=== PATIENT | female | born 1965 | race African-American/Black ===

== ENCOUNTER 2017-05-30 19:51 | Emergency (ER) | payer OTHER ==
[2017-05-30 20:10] VITALS: TEMP 98; BMI 23.3
--- NOTE | 2017-05-30 20:17 | PDOC ---
History of Present Illness - General History Source: Patient Exam Limitations: No Limitations - History of Present Illness Initial Comments: 05/30/17 20:58 The patient is a 51 year old female with no significant past medical history who presents to the ED with complaints of burning on urination and urgency. She also complains of some mild lower abdominal tenderness. She denies experiencing similar symptoms in the past and was concerned if it was something she caught from her or from kayaking from the previous day. The patient denies any vaginal discharge. She denies any flank pain. She denies any fever, chills, nausea, vomiting, diarrhea, cough, SOB, chest pain, or urinary symptoms. <Rachel Satley - Last Filed: 05/30/17 21:45> <Marine Feldman - Last Filed: 05/31/17 04:00> - General Chief Complaint: Urinary Problem Stated Complaint: BURNING ON URINATION Time Seen by Provider: 05/30/17 19:57 Past History <Rachel Staley - Last Filed: 05/30/17 21:45> - Past Medical History GI Disorders: Yes (GERD) - Psycho/Social/Smoking Cessation Hx Anxiety: No Suicidal Ideation: No Smoking History: Never smoked Information on smoking cessation initiated: No Hx Alcohol Use: No Drug/Substance Use Hx: No Substance Use Type: Alcohol <Marine Feldman - Last Filed: 05/31/17 04:00> - Past Medical History Allergies/Adverse Reactions: Allergies Allergy/AdvReac Type Severity Reaction Status Date / Time iodine Allergy Intermediate Rash Verified 05/30/17 19:58 Sulfa (Sulfonamide Allergy Intermediate Rash Verified 05/30/17 19:57 Antibiotics) Home Medications: Ambulatory Orders Ciprofloxacin [Cipro (Restricted To Id)] 250 mg PO BID #10 tablet 05/30/17 Nitrofurantoin Monohyd/M-Cryst [Macrobid -] 100 mg PO BID #14 capsule 05/30/17 Omeprazole Magnesium [Prilosec] 10 mg PO HS 05/30/17 Phenazopyridine HCl [Pyridium] 200 mg PO TID #6 tablet 05/30/17 Review of Systems - Review of Systems Able to Perform ROS?: Yes Comments:: 05/30/17 20:58 CONSTITUTIONAL: Absent: fever, chills, diaphoresis, generalized weakness, malaise, loss of appetite HEENT: Absent: rhinorrhea, nasal congestion, throat pain, throat swelling, difficulty swallowing, mouth swelling, ear pain, eye pain, visual Changes CARDIOVASCULAR: Absent: chest pain, syncope, palpitations, irregular heart rate, lightheadedness , peripheral edema RESPIRATORY: Absent: cough, shortness of breath, dyspnea with exertion, orthopnea, wheezing, stridor, hemoptysis GASTROINTESTINAL: Present: lower abdominal pain Absent: abdominal distension, nausea, vomiting, diarrhea, constipation, melena, hematochezia GENITOURINARY: Present: dysuria, urgency Absent: frequency, hesitancy, hematuria, flank pain, genital pain MUSCULOSKELETAL: Absent: myalgia, arthralgia, joint swelling SKIN: Absent: rash, itching, pallor HEMATOLOGIC/IMMUNOLOGIC: Absent: easy bleeding, easy bruising, lymphadenopathy, frequent infections ENDOCRINE: Absent: unexplained weight gain, unexplained weight loss, heat intolerance, cold intolerance NEUROLOGIC: Absent: headache, focal weakness or paresthesias, dizziness, unsteady gait, seizure, mental status changes, bladder or bowel incontinence PSYCHIATRIC: Absent: anxiety, depression, suicidal or homicidal ideation, hallucinations. All Other Systems: Reviewed and Negative <Rachel Staley - Last Filed: 05/30/17 21:45> *Physical Exam - Vital Signs Last Vital Signs Temp Pulse Resp BP Pulse Ox 98 F 84 16 115/73 100 05/30/17 19:52 05/30/17 19:52 05/30/17 19:52 05/30/17 19:52 05/30/17 19:52 - Physical Exam Comments: 05/30/17 20:59 GENERAL: Well developed, well nourished. Awake and alert. No acute distress. HEENT: Normocephalic, atraumatic. PERRLA, EOMI. No conjunctival pallor. Sclera are non- icteric. Moist mucous membranes. Oropharynx is clear. NECK: Supple. Full ROM. No JVD. Carotid pulses 2+ and symmetric, without bruits. No thyromegaly. No lymphadenopathy. CARDIOVASCULAR: Regular rate and rhythm. No murmurs, rubs, or gallops. Distal pulses are 2+ and symmetric. PULMONARY: No evidence of respiratory distress. Lungs clear to auscultation bilaterally. No wheezing, rales or rhonchi. ABDOMINAL: Soft. Mild tenderness to superpubic region on palpation. Non-distended. No rebound or guarding. No organomegaly. Normoactive bowel sounds. MUSCULOSKELETAL Normal range of motion at all joints. No bony deformities or tenderness. No CVA tenderness. EXTREMITIES: No cyanosis. No clubbing. No edema. No calf tenderness. SKIN: Warm and dry. Normal capillary refill. No rashes. No jaundice. NEUROLOGICAL: Alert, awake, appropriate. Cranial nerves 2-12 intact. No deficits to light touch and temperature in face, upper extremities and lower extremities. No motor deficits in the in face, upper extremities and lower extremities. Normoreflexic in the upper and lower extremities. Normal speech. Toes are down-going bilaterally. Gait is normal without ataxia. PSYCHIATRIC: Cooperative. Good eye contact. Appropriate mood and affect. <Rachel Staley - Last Filed: 05/30/17 21:45> - Vital Signs Last Vital Signs Temp Pulse Resp BP Pulse Ox 98 F 84 16 115/73 100 05/30/17 19:52 05/30/17 19:52 05/30/17 19:52 05/30/17 19:52 05/30/17 19:52 <Marine Feldman - Last Filed: 05/31/17 04:00> ED Treatment Course - ADDITIONAL ORDERS Additional order review: Laboratory Results 05/30/17 20:20 Urine Color Yellow Urine Appearance Clear Urine pH 7.0 Ur Specific [place] 1.025 Urine Protein 2+ H Urine Glucose (UA) Negative Urine Ketones Negative Urine Blood 3+ Urine Nitrite Negative Urine Bilirubin Negative Urine Urobilinogen 0.2 Ur Leukocyte Esterase 3+ H <Rachel Staley - Last Filed: 05/30/17 21:45> Progress Note - Progress Note Progress Note: Documentation has been prepared under my direction and personally reviewed by me in its entirety. I attest that this documented accurately reflects all work, treatment, procedures and medical decision making performed by me. <Marine Feldman - Last Filed: 05/31/17 04:00> Medical Decision Making - Medical Decision Making As noted above, this 51-year-old woman presents with a few day history of symptoms consistent with early acute lower tract UTI. In retrospect, patient states that symptoms began soon after kayaking in the [place]. Patient has no previous history of urinary tract infection. Exam as noted. Urinalysis consistent with acute cystitis. Urine culture and sensitivity sent. Patient has sulfa ALLERGY; no other known sensitivities are ALLERGIES to antibiotics. Patient initially treated with Macrodantin 100 mg and Pyridium 200 mg by mouth. Approximately 10 minutes after first dose of these medications, patient had onset of pruritis of bilateral arms and flanks. No urticaria performed. Patient denies difficulty swallowing/breathing and exam revealed no edema of lip /tongue/uvula. No stridor or wheezing heard on auscultation. Patient given Benadryl 25 mg by mouth and observed for an additional 20 minutes. Patient struck to not to take Macrodantin or Pyridium and to consider herself ALLERGIC to these medications. Antibiotic will be switched to ciprofloxacin 250 mg twice a day for 5 days. Patient should drink plenty of water. She should return to the ER if she has severe pain/high fever/vomiting. <Marine Feldman - Last Filed: 05/31/17 04:00> *DC/Admit/Observation/Transfer - Attestations Scribe Attestion: 05/30/17 21:00 Documentation prepared by Rachel Staley, acting as manager medical device for Marine Feldman MD. <Rachel Staley - Last Filed: 05/30/17 21:45> <Marine Feldman - Last Filed: 05/31/17 04:00> Diagnosis at time of Disposition: UTI (urinary tract infection) Qualifiers: Urinary tract infection type: acute cystitis Hematuria presence: without hematuria Qualified Code(s): N30.00 - Acute cystitis without hematuria - Discharge Dispostion Disposition: HOME Condition at time of disposition: Stable - Prescriptions Prescriptions: Ciprofloxacin [Cipro (Restricted To Id)] 250 mg PO BID #10 tablet Nitrofurantoin Monohyd/M-Cryst [Macrobid -] 100 mg PO BID #14 capsule Phenazopyridine HCl [Pyridium] 200 mg PO TID #6 tablet - Patient Instructions Printed Discharge Instructions: Urinary Tract Infection Additional Instructions: drink plenty of water cipro 250mg twice a day for 5 days Benadryl 25mg up to 3 X day as needed for itching Return here if you have any difficulty swallowing/breathing or severe itching Return here if you develop vomiting/back pain/fever followup with your general medical doctor within 1 week
[2017-05-30 20:34] LABS: URINE APPEARANCE Clear; URINE BILIRUBIN Negative (NEGATIVE); URINE BLOOD 3+ (NEGATIVE); URINE GLUCOSE (UA) Negative (NEGATIVE); URINE KETONE Negative (NEGATIVE); URINE NITRITE Negative (NEGATIVE); URINE UROBILINOGEN 0.2 (0.2-1.0)
[2017-05-30 20:37] LABS: URINE LEUK ESTERASE 3+ (NEGATIVE); URINE PROTEIN 2+ (NEGATIVE)
[2017-05-30 20:38] LABS: URINE COLOR YELLOW
[2017-05-30] MEDS ORDERED: PHENAZOPYRIDINE HCL 100 MG TABLET (FP) PO ONE (21:07)
[2017-05-30 21:13] LABS: URINE BACTERIA MANY /hpf (NEGATIVE); URINE WBC MANY (3-5)
[2017-05-30] MEDS ORDERED: NITROFURANTOIN MACROCRYSTAL 50 MG CAPSULE (FP) PO SCH (21:15)
[2017-05-30] MEDS ORDERED: PHENAZOPYRIDINE HCL 100 MG TABLET (FP) ONE (21:30)
[2017-05-30] MEDS ORDERED: NITROFURANTOIN MACROCRYSTAL 50 MG CAPSULE (FP) ONE (21:31)
[2017-05-30] MEDS ORDERED: diphenhydrAMINE HCL 25 MG CAPSULE (FP) PO ONE ×2 (21:58→22:01)
[2017-05-30 22:12] VITALS: BP 117/84; PULSE 69
== END 2017-05-30 22:30 | disposition home or self-care (01) ==
LOC: FER 19:51
DX: N30.00 Acute cystitis without hematuria (principal)
CPT/HCPCS: 81003; 81015; 87086; 87186; 99282-25

== ENCOUNTER 2017-06-10 09:17 | Emergency (ER) | payer OTHER ==
[2017-06-10 09:35] VITALS: BP 129/80; PULSE 88; TEMP 98.3; BMI 24.2
--- NOTE | 2017-06-10 09:44 | PDOC ---
History of Present Illness - General Chief Complaint: Urinary Problem Stated Complaint: REVISIT FOR UTI Time Seen by Provider: 06/10/17 09:34 - History of Present Illness Initial Comments: 06/10/17 09:42 Ms. Edmonds is a 51 yo female with no significant past medical history who presents with a one week history of burning on urination after going kayaking last week. She had previously presented for these symptoms and been proscribed ciprofloxacin for treatment but says that her symptoms have not gone away. She endorses taking all of her medication and that she has started to have some L flank pain as well. PSH: Tubal ligation and tummy tuck Toni: Sulfa drugs Soc: Social EtOH use. Past History - Past Medical History Allergies/Adverse Reactions: Allergies Allergy/AdvReac Type Severity Reaction Status Date / Time iodine Allergy Intermediate Rash Verified 05/30/17 19:58 Sulfa (Sulfonamide Allergy Intermediate Rash Verified 05/30/17 19:57 Antibiotics) nitrofurantoin Allergy Mild Itching Verified 06/10/17 09:29 Home Medications: Ambulatory Orders Cephalexin [Keflex] 500 mg PO BID #10 capsule 06/10/17 Phenazopyridine HCl [Pyridium] 200 mg PO TID PRN 06/10/17 GI Disorders: Yes (GERD) - Psycho/Social/Smoking Cessation Hx Anxiety: No Suicidal Ideation: No Smoking History: Never smoked Hx Alcohol Use: Yes Drug/Substance Use Hx: No Substance Use Type: None Review of Systems - Review of Systems Comments:: 06/10/17 10:13 GENERAL/CONSTITUTIONAL: No fever or chills. No weakness. HEAD, EYES, EARS, NOSE AND THROAT: No change in vision. No ear pain or discharge. No sore throat. CARDIOVASCULAR: No chest pain or shortness of breath RESPIRATORY: No cough, wheezing, or hemoptysis. GASTROINTESTINAL: No nausea, vomiting, diarrhea or constipation. GENITOURINARY: +Reported strain to urinate appropriately with some burning. No frequency. Also reports some itching and recent vaginal discharge. MUSCULOSKELETAL: No joint or muscle swelling or pain. No neck or back pain. SKIN: No rash NEUROLOGIC: No headache, vertigo, loss of consciousness, or change in strength/ sensation. ENDOCRINE: No increased thirst. No abnormal weight change HEMATOLOGIC/LYMPHATIC: No anemia, easy bleeding, or history of blood clots. ALLERGIC/IMMUNOLOGIC: No hives or skin allergy. *Physical Exam - Vital Signs Last Vital Signs Temp Pulse Resp BP Pulse Ox 98.3 F 88 15 129/80 97 06/10/17 09:19 06/10/17 09:19 06/10/17 09:19 06/10/17 09:19 06/10/17 09:19 - Physical Exam Comments: 06/10/17 10:16 GENERAL: Awake, alert, and fully oriented, in no acute distress HEAD: No signs of trauma, normocephalic, atraumatic EYES: PERRLA, EOMI, sclera anicteric, conjunctiva clear ENT: Auricles normal inspection, hearing grossly normal, nares patent, oropharynx clear without exudates. Moist mucosa NECK: Normal ROM, supple, no lymphadenopathy, JVD, or masses LUNGS: No distress, speaks full sentences, clear to auscultation bilaterally HEART: Regular rate and rhythm, normal S1 and S2, no murmurs, rubs or gallops, peripheral pulses normal and equal bilaterally. ABDOMEN: Soft, nontender, normoactive bowel sounds. No guarding, no rebound. No masses EXTREMITIES: Normal inspection, Normal range of motion, no edema. No clubbing or cyanosis. NEUROLOGICAL: Cranial nerves II through XII grossly intact. Normal speech, normal gait, no focal sensorimotor deficits SKIN: Warm, Dry, normal turgor, no rashes or lesions noted. : Vaginal exam negative for any exudate, rash, or atrophic changes. Medical Decision Making - Medical Decision Making 06/10/17 10:17 Patient re-presents after UTI diagnosis last week. Vaginal exam negative for any acute pathology - suspect continuation of UTI. Will assign ABX of different class for further care if no concerning findings on UA. 06/10/17 10:41 UA completely normal. Will treat empirically for sterile pyuria with Keflex BID for 5 days. *DC/Admit/Observation/Transfer Diagnosis at time of Disposition: UTI (urinary tract infection) Qualifiers: Urinary tract infection type: site unspecified Hematuria presence: without hematuria Qualified Code(s): N39.0 - Urinary tract infection, site not specified - Discharge Dispostion Disposition: HOME Condition at time of disposition: Good - Patient Instructions Printed Discharge Instructions: DI for Urinary Tract Infection (UTI) Additional Instructions: Take all antibiotics as instructed, even if feeling better. Please return if any fever, increase in pain, or other concerning symptoms. - Attestations Physician Attestion: 06/10/17 10:43 I, Dr. Armando George, attest that this document has been prepared under my direction and personally reviewed by me in its entirety. I further attest, that it accurately reflects all work, treatment, procedures and medical decision -making performed by me.
--- NOTE | 2017-06-10 10:06 | PDOC ---
Attending Attestation - Resident Resident Name: Armando George - ED Attending Attestation I have performed the following: I have examined & evaluated the patient, The case was reviewed & discussed with the resident, I agree w/resident's findings & plan, Exceptions are as noted - HPI HPI: 06/10/17 10:04 Agree with the resident's HPI as documented in the electronic medical record. - Physicial Exam PE: 06/10/17 10:04 Agree with the resident's physical examination as documented in the electronic medical record. - Medical Decision Making 06/10/17 10:04 51-year-old female with no significant past medical history who was recently treated for a urinary tract infection with Cipro and a urine culture that grew out greater than 100,000 colony of Escherichia coli sensitive to Levaquin presents the emergency Department with complaints of urinary urgency. Differential diagnosis includes but is not limited to: Use infection, resistant UTI, STI. Plan: 1. Urine analysis 2. Urine culture 3. STI screening 4. Observe and reevaluate 5. Will likely restart an antibiotic different from the fluoroquinolone class and have patient follow up with her primary care physician on Sunday. The pupil also advised the patient to return to the emergency department if her symptoms persist, worsen, or new symptoms arise.
[2017-06-10 10:08] LABS: URINE APPEARANCE Clear; URINE BILIRUBIN Negative (NEGATIVE); URINE BLOOD Negative (NEGATIVE); URINE GLUCOSE (UA) Negative (NEGATIVE); URINE KETONE Negative (NEGATIVE); URINE LEUK ESTERASE Negative (NEGATIVE); URINE NITRITE Negative (NEGATIVE); URINE PROTEIN Negative (NEGATIVE); URINE UROBILINOGEN 0.2 (0.2-1.0)
[2017-06-10] MEDS ORDERED: KETOROLAC TROMETHAMINE 60 MG/2 ML VIAL IM ONE (10:19)
[2017-06-10 10:32] LABS: URINE COLOR YELLOW
[2017-06-10] MEDS ORDERED: CEPHALEXIN MONOHYDRATE 500 MG CAPSULE (UD) PO ONE (10:37)
[2017-06-10] MEDS ORDERED: CEPHALEXIN MONOHYDRATE 500 MG CAPSULE (UD) ONE (10:39)
== END 2017-06-10 10:50 | disposition home or self-care (01) ==
LOC: FER 09:17
PROC: 3E0233Z Introduction of Anti-inflammatory into Muscle, Percutaneous Approach (ICD-10-PCS; principal; 2017-06-10)
DX: N39.0 Urinary tract infection, site not specified (principal); K21.9 Gastro-esophageal reflux disease without esophagitis
CPT/HCPCS: 36415; 81003; 87086; 87491; 87591; 96372; 99281-25

== ENCOUNTER 2018-02-11 16:27 | Emergency (ER) | payer OTHER ==
--- NOTE | 2018-02-11 16:37 | PDOC ---
History of Present Illness - General History Source: Patient Exam Limitations: No Limitations - History of Present Illness Initial Comments: 02/11/18 18:03 The patient is a 52 year old female, with PMH of acid reflux presents to the emergency department with a sore throat for 3 days. The patient states that she has had a lot of painful swallowing. She reports that she has been experiencing associated headaches and also chills with her sore throat. The patient also reports intermittent belly pain for 3 days which she last had this morning and has since then gone away .She states that she took ibuprofen earlier today at 11am which relieved her headache but had not apparent relief for her sore throat. The patient reports that she recently has sick contact with her 7 year old grandchild who had similar throat pain. The patient denies any other complaints. She denies any chest pain, shortness of breath, and dizziness. She denies any fever, nausea, vomiting , diarrhea or constipation. The patient also denies any dysuria, urinary frequency, urgency or hematuria. The patient denies any history of diabetes or cholesterol. 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 PCP: Bret Cavanaugh <Nish Aguayo - Last Filed: 02/11/18 18:03> - General History Source: Patient Exam Limitations: No Limitations <Efra Serrano - Last Filed: 02/11/18 18:05> - General Chief Complaint: Sore Throat Stated Complaint: THROAT PAIN,DIFFICULTY SWALLOWING Time Seen by Provider: 02/11/18 16:30 Past History <Nish Aguayo - Last Filed: 02/11/18 18:03> - Past Medical History GI Disorders: Yes (GERD) - Suicide/Smoking/Psychosocial Hx Smoking History: Never smoked Hx Alcohol Use: Yes Drug/Substance Use Hx: No Substance Use Type: None <Efra Serrano - Last Filed: 02/11/18 18:05> - Past Medical History Allergies/Adverse Reactions: Allergies Allergy/AdvReac Type Severity Reaction Status Date / Time iodine Allergy Intermediate Rash Verified 02/11/18 16:29 Sulfa (Sulfonamide Allergy Intermediate Rash Verified 02/11/18 16:29 Antibiotics) nitrofurantoin Allergy Mild Itching Verified 02/11/18 16:29 Home Medications: Ambulatory Orders NK [No Known Home Medication] 02/11/18 Review of Systems - Review of Systems Able to Perform ROS?: Yes Comments:: 02/11/18 18:04 CONSTITUTIONAL: Reported (+) Chills No reported: Fever, Diaphoresis, Generalized Weakness, Malaise, Loss of Appetite HEENT: Reported(+) Throat pain, painful swallowing. No reported: Rhinorrhea, Nasal Congestion, Throat Swelling, Difficulty Swallowing, Mouth Swelling, Ear Pain, Eye Pain, Visual Changes CARDIOVASCULAR: No reported: Chest Pain, Syncope, Palpitations, Irregular Heart Rate, Lightheadedness, Peripheral Edema RESPIRATORY: No reported: Cough, Shortness of Breath, SOB with Exertion, Orthopnea, Wheezing , Stridor, Hemoptysis GASTROINTESTINAL: + Abdominal pain (resolved) No reported:, Abdominal Distension, Nausea, Vomiting, Diarrhea, Constipation, Melena, Hematochezia GENITOURINARY: No reported: Dysuria, Frequency, Urgency, Hesitancy, Flank Pain, Genital Pain MUSCULOSKELETAL: No reported: Myalgia, Arthralgia, Joint Swelling, Back pain, Neck Pain SKIN: No reported: Rash, Itching, Pallor HEMEATOLOGIC/IMMUNOLOGIC: No reported: Easy Bleeding, Easy Bruising, Lymphadenopathy, Frequent infections ENDOCRINE: No reported: Unexplained Weight Gain, Unexplained Weight Loss, Heat Intolerance , Cold Intolerance NEUROLOGIC: Reported(+) Headache (resolved) No reported: Focal Weakness, Paresthesias, Vertigo, Lightheadedness, Unsteady Gait, Seizure, Mental Status Changes, Incontinence PSYCHIATRIC: No reported: Anxiety, Depression <Nish Aguayo - Last Filed: 02/11/18 18:03> *Physical Exam - Vital Signs Last Vital Signs Temp Pulse Resp BP Pulse Ox 100 F H 101 H 18 136/82 100 02/11/18 16:31 02/11/18 16:31 02/11/18 16:31 02/11/18 16:31 02/11/18 16:31 - Physical Exam Comments: 02/11/18 18:04 GENERAL: The patient is awake, alert, and fully oriented, Nontoxic - in no acute distress. HEAD: Normocephalic, atraumatic. EYES: extraocular movements intact, sclera anicteric, conjunctiva clear. ENT: Normal voice, moist mucus membranes, +whitish exudates in posterior pharynx L>R, patent oropharynx, uvula clearly visible, no assymetry. NECK: Normal range of motion, supple LUNGS: Breath sounds equal, clear to auscultation bilaterally. No wheezes, no rhonchi, no rales. HEART: Regular rate and rhythm, without murmur, rub or gallop. ABDOMEN: Soft, nontender, normoactive bowel sounds. No guarding, no rebound. No CVA tenderness EXTREMITIES: Normal range of motion, NEUROLOGICAL: No facial assymetry, Normal speech, movinga ll 4 extremtiies spontaneously and symmetrically PSYCH: Normal mood, normal affect. SKIN: Warm, Dry, normal turgor, <Nish Aguayo - Last Filed: 02/11/18 18:03> ED Treatment Course - ADDITIONAL ORDERS Additional order review: 02/11/18 16:50 Group A Strep Rapid Antigen - Final Throat - Medications Given in the ED: ED Medications Discontinued Medications Generic Name Dose Route Start Last Admin Trade Name Freq PRN Reason Stop Dose Admin Dexamethasone 10 mg 02/11/18 16:45 02/11/18 17:02 Decadron - PO 02/11/18 16:46 10 mg ONCE ONE Administration Ibuprofen 600 mg 02/11/18 16:45 02/11/18 17:02 Motrin - PO 02/11/18 16:46 600 mg ONCE ONE Administration Penicillin G Benzathine 1,200,000 unit 02/11/18 17:23 02/11/18 17:35 Bicillin L-A - IM 02/11/18 17:24 1,200,000 unit ONCE ONE Administration <Nish Aguayo - Last Filed: 02/11/18 18:03> Medical Decision Making - Medical Decision Making 02/11/18 16:47 52y F hx of GERD presents with sore throat. The pt endorses 3 days of sore throat and pain when swallowing as well as a mild headache and generalized weakness/malaise without any fever/chills. on exam pts vitals noted for low grade fever, and she has some exudates in the posterior pharynx, which is symmetric and patent not significantly erythemadous. 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 I have reviewed the details of the note, within reason, and agree with the documentation with the following case summary and management plan written by me <Efra Serrano - Last Filed: 02/11/18 18:05> *DC/Admit/Observation/Transfer - Attestations Scribe Attestion: 02/11/18 18:05 Documentation prepared by Nish Aguayo, acting as manager medical affairs for Efra Serrano MD. <Nish Aguayo - Last Filed: 02/11/18 18:03> - Discharge Dispostion Admit: No <Efra Serrano - Last Filed: 02/11/18 18:05> Diagnosis at time of Disposition: Strep throat - Discharge Dispostion Disposition: HOME Condition at time of disposition: Improved - Referrals Referrals: Bret Dunbar [Non Staff, Medical] - - Patient Instructions Printed Discharge Instructions: DI for Strep Throat Additional Instructions: YOu tested positive for strep throat You were given a dose of penicillin. Take ibuprofen as needed for pain and fever. If you cannot swallow anything you have difficulty breathing or any other concerns, return to the emergency department for further evaluation. Return to the emergency department immediately with ANY new, persistent or worsening symptoms. Have your grandchild tested for strep as he has been having some throat discomfort. You MUST call and follow up with your doctor in 4-5d for further evaluation of your symptoms. Results were discussed with you. Please make sure your doctor reviews the results of your emergency evaluation. Print Language: BRAZILIAN - Post Discharge Activity Forms/Work/School Notes: Back to Work
[2018-02-11] MEDS ORDERED: IBUPROFEN 400 MG TABLET (FP) PO ONE (16:45)
[2018-02-11] MEDS ORDERED: DEXAMETHASONE 4 MG TABLET (FP) PO ONE (16:45)
[2018-02-11 16:47] VITALS: BP 136/82; BMI 23.3
[2018-02-11] MEDS ORDERED: DEXAMETHASONE 4 MG TABLET (FP) ONE (16:52)
[2018-02-11] MEDS ORDERED: IBUPROFEN 600 MG TABLET (FP) PO ONE (16:52)
[2018-02-11] MEDS ORDERED: PENICILLIN G BENZATHINE 1,200,000 UNIT/2 ML PFS IM ONE ×2 (17:23→17:28)
[2018-02-11 18:22] VITALS: PULSE 96; TEMP 99.8
== END 2018-02-11 18:05 | disposition home or self-care (01) ==
LOC: FER 16:27
DX: J02.0 Streptococcal pharyngitis (principal)
CPT/HCPCS: 87070; 87077; 87430; 96372; 99281-25

== ENCOUNTER 2018-10-10 20:11 | Emergency (ER) | payer OTHER ==
--- NOTE | 2018-10-10 20:26 | PDOC ---
History of Present Illness - General History Source: Patient Exam Limitations: No Limitations - History of Present Illness Initial Comments: 10/10/18 20:51 The patient is a 53 year old female presenting with her , with a significant past medical history of GERD, who presents to the ED complaining of groin pain, vaginal pain with burning and a sore throat. She reports that she awoke yesterday with the groin pain. She notes that the pain was severe enough that it was uncomfortable for her to ambulate. She reports that a friend gave her Naproxen which she took yesterday. She notes that it helped relieve the pain. She denies taking any pain medication today and notes that the pain is lessened from the day before. She reports that the pain has localized in her vagina with a burning sensation, not related to urine output. The patient denies chest pain, shortness of breath, headache and dizziness. Denies fever, chills, nausea, vomiting, diarrhea or constipation. Denies dysuria , frequency, urgency and hematuria. Allergies: Iodine, Sulfonamide, Nitrofurantoin Past surgical history: Tubal ligation Social history: Alcohol use. PCP: Bret Cavanaugh <Sameer Morgan - Last Filed: 10/10/18 21:13> <Ilan Bella - Last Filed: 10/11/18 02:58> - General Chief Complaint: Pain Stated Complaint: LEFT GROIN, THIGH, VAGINAL PAIN Time Seen by Provider: 10/10/18 20:26 Past History <Sameer Morgan - Last Filed: 10/10/18 21:13> - Past Medical History COPD: No GI Disorders: Yes (GERD) - Surgical History Abdominal Surgery: (tubal ligation) - Suicide/Smoking/Psychosocial Hx Smoking History: Never smoked Hx Alcohol Use: Yes Drug/Substance Use Hx: No Substance Use Type: None <Ilan Bella - Last Filed: 10/11/18 02:58> - Past Medical History Allergies/Adverse Reactions: Allergies Allergy/AdvReac Type Severity Reaction Status Date / Time iodine Allergy Intermediate Rash Verified 10/10/18 20:23 Sulfa (Sulfonamide Allergy Intermediate Rash Verified 10/10/18 20:23 Antibiotics) nitrofurantoin Allergy Mild Itching Verified 10/10/18 20:23 Home Medications: Ambulatory Orders NK [No Known Home Medication] 02/11/18 Review of Systems - Review of Systems Able to Perform ROS?: Yes Comments:: 10/10/18 20:51 GENERAL/CONSTITUTIONAL: No fever or chills. No weakness. HEAD, EYES, EARS, NOSE AND THROAT: (+) Sore throat. No change in vision. No ear pain or discharge. GASTROINTESTINAL: No nausea, vomiting, diarrhea or constipation. GENITOURINARY: (+) Vaginal pain with burning. (+) Groin pain. No dysuria, frequency, or change in urination. CARDIOVASCULAR: No chest pain or shortness of breath. RESPIRATORY: No cough, wheezing, or hemoptysis. MUSCULOSKELETAL: No joint or muscle swelling or pain. No neck or back pain. SKIN: No rash NEUROLOGIC: No headache, vertigo, loss of consciousness, or change in strength/ sensation. ENDOCRINE: No increased thirst. No abnormal weight change. HEMATOLOGIC/LYMPHATIC: No anemia, easy bleeding, or history of blood clots. ALLERGIC/IMMUNOLOGIC: No hives or skin allergy. <Sameer Morgan - Last Filed: 10/10/18 21:13> *Physical Exam - Vital Signs Last Vital Signs Temp Pulse Resp BP Pulse Ox 97.6 F 70 16 114/77 98 10/10/18 20:22 10/10/18 20:22 10/10/18 20:22 10/10/18 20:22 10/10/18 20:22 - Physical Exam Comments: 10/10/18 21:13 Constitutional: Awake, alert, oriented. No acute distress. Head: Normocephalic. Atraumatic Eyes: PERRL. EOMI. Conjunctivae are not pale. ENT: Mucous membranes are moist and intact. Posterior pharynx without exudates or erythema. Uvula midline. Neck: Supple. Full ROM. No lymphadenopathy. Cardiovascular: Regular rate. Regular rhythm. S1, S2 regular. Distal pulses are 2+ and symmetric. Pulmonary/Chest: No evidence of respiratory distress. Clear to auscultation bilaterally No wheezing, rales or rhonchi. Abdominal: Soft and non-distended. There is no tenderness. No rebound, guarding or rigidity. No organomegaly. No palpable masses. Good bowel sounds. Back: No CVA tenderness. Musculoskeletal: No edema. No cyanosis. No clubbing. Full range of motion in all extremities. Nocalf tenderness. Radial/pedal pulses are intact and 2+ bilaterally Skin: Skin is warm and dry. No petechiae. No purpura. Neurological: Alert and oriented to person, place, and time. Cranial nerves II -XII are grossly intact. Normal speech. Strength is grossly symmetric. No sensory deficits. Pelvic Exam: Normal <Sameer Morgan - Last Filed: 10/10/18 21:13> Moderate Sedation - Procedure Monitoring Vital Signs: Procedure Monitoring Vital Signs Temperature 97.6 F 10/10/18 20:22 Pulse Rate 70 10/10/18 20:22 Respiratory Rate 16 10/10/18 20:22 Blood Pressure 114/77 10/10/18 20:22 O2 Sat by Pulse Oximetry (%) 98 10/10/18 20:22 <Sameer Morgan - Last Filed: 10/10/18 21:13> Medical Decision Making - Medical Decision Making 10/11/18 02:57 please note the following edits to pelvic exam: rectocoele, low grade uterine prolapse, nontender, no mass UA:- a/p nonspecific pelvic pain shared decision making: workup now versus wait and see opted for latter has fu in place <Ilan Bella - Last Filed: 10/11/18 02:58> *DC/Admit/Observation/Transfer - Attestations Scribe Attestion: 10/10/18 20:51 Documentation prepared by Sameer Morgan, acting as medical technologist chief for Ilan Bella MD <Sameer Morgan - Last Filed: 10/10/18 21:13> <Ilan Bella - Last Filed: 10/11/18 02:58> Diagnosis at time of Disposition: Pelvic pain - Discharge Dispostion Disposition: HOME Condition at time of disposition: Good - Referrals Referrals: Mirtha Choudhary MD [Primary Care Provider] - - Patient Instructions Printed Discharge Instructions: DI for Pelvic Pain - Post Discharge Activity
[2018-10-10 20:32] VITALS: BP 114/77; PULSE 70; TEMP 97.6; BMI 24.5
[2018-10-10 22:04] LABS: PH,URINE 6.5 (4.5-8); URINE APPEARANCE Clear; URINE BILIRUBIN Negative (NEGATIVE); URINE COLOR Yellow; URINE GLUCOSE (UA) Negative (NEGATIVE); URINE KETONE Negative (NEGATIVE); URINE LEUK ESTERASE TRACE (NEGATIVE); URINE NITRITE Negative (NEGATIVE); URINE PROTEIN Negative (NEGATIVE); URINE UROBILINOGEN 0.2 (0.2-1.0)
[2018-10-10 22:26] LABS: URINE BACTERIA 1+ /hpf (NEGATIVE); URINE RBC 0-2 /hpf (0-3)
[2018-10-10] MEDS ORDERED: IBUPROFEN 600 MG TABLET (FP) PO ONE ×2 (22:36→22:37)
== END 2018-10-10 22:38 | disposition home or self-care (01) ==
LOC: FER 20:11
DX: R10.2 Pelvic and perineal pain (principal); K21.9 Gastro-esophageal reflux disease without esophagitis
CPT/HCPCS: 81003; 81015; 99283-25

== ENCOUNTER 2021-11-28 08:06 | Day surgery (SDC) | payer OTHER ==
[2021-11-23 13:27] VITALS: BMI 24.2
[2021-11-28 08:36] VITALS: TEMP 97.7
[2021-11-28 10:02] VITALS: BP 99/68; PULSE 69
== END 2021-11-28 09:55 | disposition home or self-care (01) ==
LOC: FASU-ENDO 08:06
PROVIDERS: ATTEND Internal Medicine Gastroenterology
PROC: 0DB68ZX Excision of Stomach, Via Natural or Artificial Opening Endoscopic, Diagnostic (ICD-10-PCS; 2021-11-28)
PROC: 0DB58ZX Excision of Esophagus, Via Natural or Artificial Opening Endoscopic, Diagnostic (ICD-10-PCS; 2021-11-28)
PROC: 0D748DZ Dilation of Esophagogastric Junction with Intraluminal Device, Via Natural or Artificial Opening Endoscopic (ICD-10-PCS; 2021-11-28)
PROC: 0DB98ZX Excision of Duodenum, Via Natural or Artificial Opening Endoscopic, Diagnostic (ICD-10-PCS; principal; 2021-11-28 08:58)
DX: K29.50 Unspecified chronic gastritis without bleeding (principal); R13.10 Dysphagia, unspecified; R12 Heartburn
CPT/HCPCS: 88305-TC; 88342-TC

== ENCOUNTER 2024-01-26 20:33 | Emergency (ER) | payer OTHER ==
[2024-01-26 20:38] VITALS: TEMP 98.4; BMI 24.2
[2024-01-26] MEDS ORDERED: ACETAMINOPHEN INJECTION 100 ML IVPB ONE (21:51)
[2024-01-26] MEDS ORDERED: METOCLOPRAMIDE HCL INJECTION 10 MG/2 ML VIAL ONE (21:51)
[2024-01-26] MEDS: ACETAMINOPHEN 1000 MG/100 ML BAG IVPB ONE (22:10)
[2024-01-26] MEDS: SODIUM CHLORIDE 0.9% 500 ML INFUS.BAG IV ONE (22:10)
[2024-01-26] MEDS: METOCLOPRAMIDE HCL INJECTION 10 MG/2 ML VIAL IVPB ONE (22:11)
[2024-01-26 22:12] LABS: EOS % 3.6 % (0-4.5); HEMATOCRIT 40.7 % (32.4-45.2); HEMOGLOBIN 13.3 GM/dL (10.7-15.3); LYMPH % 50.5 % (8-40); MCH 25.7 pg (25.7-33.7); MCHC 32.7 g/dl (32.0-36.0); MEAN CELL VOLUME 78.8 fl (80-96); MEAN PLT VOLUME 8.6 fl (7.5-11.1); MONO % 6.2 % (3.8-10.2); NEUT % 38.7 % (42.8-82.8); PLATELET COUNT 244 10^3/uL (134-434); RBC 5.16 M/mm3 (3.60-5.2); RDW 12.7 % (11.6-15.6); WHITE BLOOD COUNT 5.4 K/mm3 (4.0-10.0)
[2024-01-26 22:22] LABS: POTASSIUM 3.6 mmol/L (3.5-5.1)
[2024-01-26 22:24] LABS: BLOOD UREA NITROGEN 11.9 mg/dL (7-18); CALCIUM 8.9 mg/dL (8.5-10.1)
[2024-01-26 22:25] LABS: ALBUMIN 3.7 g/dl (3.4-5.0)
[2024-01-26 22:28] LABS: CREATININE 0.9 mg/dL (0.55-1.3)
[2024-01-26 22:33] LABS: BILIRUBIN,TOTAL 0.3 mg/dL (0.2-1)
[2024-01-26 23:21] VITALS: BP 106/65; PULSE 81; RESP 20
== END 2024-01-26 23:31 | disposition home or self-care (01) ==
LOC: JER 20:33
PROC: 3E033NZ Introduction of Analgesics, Hypnotics, Sedatives into Peripheral Vein, Percutaneous Approach (ICD-10-PCS; principal; 2024-01-26)
PROC: 3E033GC Introduction of Other Therapeutic Substance into Peripheral Vein, Percutaneous Approach (ICD-10-PCS; 2024-01-26)
DX: G44.209 Tension-type headache, unspecified, not intractable (principal); Z20.822 Contact with and (suspected) exposure to COVID-19
CPT/HCPCS: 0241U-QW; 36415; 70450-TC; 80053; 84703; 85025; 99285-25; J0131